=== PATIENT | female | born 1955 | race Caucasian/White ===

== ENCOUNTER 2016-05-31 07:33 | Day surgery (SDC) | payer BC ==
[2016-05-31] VITALS (8 sets, daily range): BP systolic 113–151; BP diastolic 59–80; PULSE 70–89; RESP 16–22; Ht 151.1 cm; Wt 65.6 kg
[~2016-05-31] VITALS: Ht 151.1 cm; Wt 65.6 kg
[~2016-05-31 07:33] MED LIST: GLIP2.5T3 PO; METO50TA16 PO; SIMV10TA6 PO; SITA25TA3 PO
[2016-05-31 09:07] LABS: ADD UMIC YES; URINE BILIRUBIN (Dip) NEGATIVE (NEGATIVE); URINE BLOOD (Dip) 1+ (NEGATIVE); URINE COLOR LT. YELLOW (YELLOW); URINE KETONES (Dip) NEGATIVE (NEGATIVE); URINE LEUKOCYTE ESTERASE (Dip) TRACE (NEGATIVE); URINE NITRITE (Dip) NEGATIVE (NEGATIVE); URINE TOTAL PROTEIN (Dip) 2+ (NEGATIVE); URINE UROBILINOGEN (Dip) 0.2 E.U./dL (0.1-1.0)
[2016-05-31] MEDS ORDERED: [UNRECOGNIZED DRUG - CODE] (09:10)
[2016-05-31] MEDS ORDERED: AMLO-147 PO (09:10)
[2016-05-31] MEDS ORDERED: SEVE800T7 PO (09:10)
[2016-05-31] MEDS ORDERED: TYLENOL (09:13)
[2016-05-31 09:17] LABS: INR 0.93; PARTIAL THROMBOPLASTIN TIME 25.1 Sec (25.0-35.0); PROTIME 12.5 Sec (12.2-14.2)
[2016-05-31 09:18] LABS: BACTERIA,URINE RARE; URINE RBCS 0-2 /HPF (0)
[2016-05-31 09:18] LABS: CALCIUM 9.6 mg/dl (8.4-10.2); CREATININE 5.94 mg/dl (0.44-1.00); POTASSIUM 4.4 mmol/L (3.5-5.1)
[2016-05-31 09:20] LABS: ADD SCAN DIFF NO; BASOPHILS % 0.2 % (0.0-2.0); EOSINOPHILS # 0.1 10^3/ul (0.0-0.5); EOSINOPHILS % 2.4 % (0.0-7.0); HEMATOCRIT 35.2 % (37.0-47.0); HEMOGLOBIN 11.4 g/dl (12.0-16.0); LYMPHOCYTES # 1.3 10^3/ul (0.8-2.9); LYMPHOCYTES % 24.9 % (15.0-51.0); MEAN CORPUSCULAR HEMOGLOBIN 32.6 pg (29.0-33.0); MEAN CORPUSCULAR HGB CONC 32.4 g/dl (32.0-37.0); MEAN CORPUSCULAR VOLUME 100.6 fl (82.0-101.0); MONOCYTE # 0.5 10^3/ul (0.3-0.9); MONOCYTES % 8.9 % (0.0-11.0); NEUTROPHIL # 3.2 10^3/ul (1.6-7.5); NEUTROPHILS % 63.2 % (39.0-77.0); PLATELET COUNT 219 10^3/UL (140-415); RED CELL DISTRIBUTION WIDTH 14.3 % (11.5-14.5); WHITE BLOOD COUNT 5.1 10^3/ul (4.8-10.8)
--- NOTE | 2016-05-31 09:48 | RADRPT ---
PROCEDURE: XR Chest. CLINICAL INDICATION: Shortness of breath. TECHNIQUE: Single frontal chest x-ray. COMPARISON: 06/10/2015 FINDINGS: Interval placement of a right Perma-Cath with the tip in the right atrium. The lungs are clear. No focal opacification is seen. No pneumothorax or pleural effusion is seen. The cardiomediastinal s ilhouette is unremarkable. The osseous structures are grossly unremarkable. IMPRESSION: 1. Interval placement of right Perma-Cath with the tip in the right atrium. 2. No evidence of acute cardiopulmonary disease. RPTAT: JJ .Jose Tsang MD, Date Time Electronically viewed and signed by .Jose Tsang MD, on 05/31/2016 09:48 .A/
[2016-05-31] MEDS ORDERED: IODIXANOL LOCM 100 ML BTL ONE (11:14)
[2016-05-31] MEDS ORDERED: MIDAZOLAM 1 MG/ML 2 ML INJ ONE (11:14)
[2016-05-31] MEDS ORDERED: LIDOCAINE 1% (MDV) 20 ML INJ ONE (11:14)
[2016-05-31] MEDS ORDERED: FENTAnyl 50 MCG/ML VIAL ONE (11:14)
[2016-05-31] MEDS ORDERED: HEPARIN 1000 UNITS/NS (A-LINE) 1,000 ML ONE (11:14)
[2016-05-31] MEDS ORDERED: IODIXANOL LOCM 50 ML BTL ONE (11:45)
--- NOTE | 2016-05-31 12:00 | PDOCDIS ---
Discharge Instructions DIAGNOSIS Discharge Diagnosis: esrd CONDITION Patient Condition: Good HOME CARE INSTRUCTIONS: Special Diet: renal diet ACTIVITY: Activity Restrictions: Slowly Increase Activity Rest between Activity Avoid heavy lifting Do not operate Machinery Do not operate Power Tool Avoid Heavy Housework Bathing Restrictions: Shower FOLLOW UP/APPOINTMENTS Appointments followup with real at [facility] in 2 weeks May use Fistula for HD starting tomorrow and followup for HD perm catheter removal if tolerating dialysis via LUE fistula ROBIN WATKINS MD May 31, 2016 12:00
--- NOTE | 2016-05-31 12:51 | OPR ---
DATE OF OPERATION: 05/31/2016 SURGEON: Chito Juarez MD FLUOROSCOPY HOLM: Abdoul Judge MD PREOPERATIVE DIAGNOSIS: 1. Malfunctioning left upper extremity AV fistula, nonmaturing. 2. End-stage renal disease. POSTOPERATIVE DIAGNOSIS: 1. Malfunctioning left upper extremity AV fistula, nonmaturing. 2. End-stage renal disease. ANESTHESIA: Local with sedation. ESTIMATED BLOOD LOSS: Minimal. COMPLICATIONS: None HEPARIN: 5000 units of heparin intravenously. CONTRAST: As recorded. ACCESS: Left upper extremity 6-Romanian sheath. CLOSURE: Manual compression, 3-0 nylon suture. INDICATIONS: This is a 61-year-old female who presented with a history of end-stage renal disease, currently with a right chest wall catheter. The fistula has not matured during her fistula surveill ance ultrasound and it was identified that she has areas of significant stenosis. Subsequently, pat ient was informed of risks and benefits of a venogram balloon angioplasty and stenting. Risks inclu ding but not limited to bleeding, thrombosis, embolization, myocardial infarction, , device mal function, infection, nephrotoxicity stroke. The patient has agreed to proceed. PROCEDURE: 1. Ultrasound-guided access of the left upper extremity fistula. 2. Left upper extremity fistulogram. 3. Central venogram (subclavian vein and superior vena cava, internal jugular vein and brachiocepha lic vein). 4. Left cephalic vein venoplasty using a 7 mm x 60 mm balloon. 5. Central venoplasty using a 7 mm x 60 mm balloon. 6. Cephalic arch and axillary vein venoplasty using a 7 mm x 60 mm balloon. FINDINGS: 1. Patent fistula. 2. Significant stenosis in the proximal aspect of the cephalic vein and the fistula. 3. Patent axillary vein with stenosis in the cephalic arch at the junction. 4. Patent left subclavian vein. 5. Patent brachiocephalic vein. 6. Patent superior vena cava. 7. Patent brachial artery. 8. Patent bifurcation of the brachial artery. POST-INTERVENTION FINDINGS: Patent fistula and improved flow through the proximal aspect of the cep halic vein where the patient had stenosis and through the cephalic arch. DESCRIPTION OF PROCEDURE: The patient was brought into the angio suite and positioned in supine pos ition on the fluoroscopic table. Sedation was administered without complications. Right upper extr emity was shaved, prepped and draped in the usual standard sterile fashion. Timeout and appropriate site was marked and confirmed. Local anesthesia was infiltrated in the region of the left upper ex tremity fistula. The fistula was then cannulated micro access needle under ultrasound guidance and the guidewire was advanced into the axillary vein under fluoroscopic guidance. The needle was then removed, and the c lot and a glide catheter was placed. Multicystic fistulogram was conducted of the upper extremity a nd central veins. Findings are noted above. At this point, it was identified the patient has a sig nificant stenosis in the proximal aspect of the fistula and in the central vein with the cephalic ar ch and axillary vein junction. At this point, it was decided to go ahead and perform balloon venopl asty of this segment using a 7 mm x 60 mm balloon. Venoplasty of the cephalic vein was performed in the fistula with good flow limiting venogram. Once that was conducted, we went ahead and performed a venoplasty of the cephalic arch and axillary vein junction with good findings. Completion venogr am identified good flow and good bruit and thrill identified in the fistula. The patient tolerated the procedure well and was sent to the postanesthesia care unit in stable condition. We went ahead and removed all catheters, wires and using a 3-0 nylon suture, the puncture site was closed. PLAN: We will schedule the patient to have her fistula used starting tomorrow and hope that she can have 3 successful sessions prior to removing the right chest wall catheter. Dictated By: CHITO HUTSON/STEPHEN Conf#: [id number] DID#: [id number]
--- NOTE | 2016-06-01 19:16 | RADRPT ---
Vent Rate: 69 bpm RR Interval: 0 msec SC Interval: 140 msec QRS Duration: 96 msec QT Interval: 402 msec QTC Interval: 430 msec P-R-T [place]: 28 - 24 - 72 degrees Normal sinus rhythm Normal ECG Electronically Signed By: Gary Urrutia [id number]
== END 2016-05-31 13:50 | disposition home or self-care (01) ==
LOC: SDS 07:33
PROVIDERS: ATTEND Thoracic Surgery (Cardiothoracic Vascular Surgery)
DX: T82.898A Other specified complication of vascular prosthetic devices, implants and grafts, initial encounter (principal); Y84.1 Kidney dialysis as the cause of abnormal reaction of the patient, or of later complication, without mention of misadventure at the time of the procedure; Y92.89 Other specified places as the place of occurrence of the external cause; I12.0 Hypertensive chronic kidney disease with stage 5 chronic kidney disease or end stage renal disease; N18.6 End stage renal disease
CPT/HCPCS: 36902; 36907; 71010; 80048; 81001; 82962; 85025; 85610; 85730; 93005; C1725; C1769; J1644; J2250; J3010; Q9967; 81003

== ENCOUNTER 2016-07-04 23:38 | Emergency (ER) | payer BC ==
[~2016-07-04] VITALS: Ht 149.9 cm; Wt 66.5 kg
[~2016-07-04 23:38] MED LIST changes: +AMLO-147 PO; -METO50TA16 PO; +SEVE800T7 PO; +TYLENOL
[2016-07-05 00:05] VITALS: Ht 149.9 cm; Wt 66.5 kg
[2016-07-05] MEDS ORDERED: SOD CHLORIDE 0.9% 500 ML IV STA (02:27)
[2016-07-05 02:44] LABS: ADD SCAN DIFF NO
[2016-07-05 02:55] LABS: INR 0.97; PROTIME 12.9 Sec (12.2-14.2)
[2016-07-05 02:56] LABS: PARTIAL THROMBOPLASTIN TIME 29.2 Sec (25.0-35.0)
[2016-07-05 03:03] LABS: BASOPHILS % 0.3 % (0.0-2.0); EOSINOPHILS % 0.3 % (0.0-7.0); HEMATOCRIT 31.9 % (37.0-47.0); HEMOGLOBIN 10.3 g/dl (12.0-16.0); LYMPHOCYTES # 1.2 10^3/ul (0.8-2.9); LYMPHOCYTES % 13.1 % (15.0-51.0); MEAN CORPUSCULAR HEMOGLOBIN 32.7 pg (29.0-33.0); MEAN CORPUSCULAR HGB CONC 32.3 g/dl (32.0-37.0); MEAN CORPUSCULAR VOLUME 101.3 fl (82.0-101.0); MEAN PLATELET VOLUME 11.2 fl (7.4-10.4); MONOCYTE # 0.4 10^3/ul (0.3-0.9); MONOCYTES % 4.7 % (0.0-11.0); NEUTROPHIL # 7.1 10^3/ul (1.6-7.5); NEUTROPHILS % 80.8 % (39.0-77.0); PLATELET COUNT 270 10^3/UL (140-415); RED BLOOD COUNT 3.15 10^6/ul (4.20-5.40); RED CELL DISTRIBUTION WIDTH 13.6 % (11.5-14.5); WHITE BLOOD COUNT 8.9 10^3/ul (4.8-10.8)
[2016-07-05 03:04] LABS: ALBUMIN/GLOBULIN RATIO 1.1
[2016-07-05 03:07] LABS: ALBUMIN 4.1 g/dl (3.3-4.9); BILIRUBIN,INDIRECT 0.2 mg/dl (0-1.1); BILIRUBIN,TOTAL 0.2 mg/dl (0.2-1.3); CREATININE 4.9 mg/dl (0.44-1.00); POTASSIUM 3.8 mmol/L (3.5-5.1); TOTAL PROTEIN 7.8 g/dl (6.1-8.1)
[2016-07-05 03:17] LABS: TROPONIN-I 0.087 ng/ml (0.00-0.12)
--- NOTE | 2016-07-05 03:38 | RADRPT ---
PROCEDURE: Chest. CLINICAL INDICATION: Chest pain. TECHNIQUE: Single frontal view of the chest was obtained. COMPARISON: 05/31/2016. FINDINGS: The cardiac silhouette is within normal limits. The aortic arch is unremarkable. There is no focal consolidation, vascular congestion or pleural effusion. There is no pneumothorax. IMPRESSION: No evidence for active cardiopulmonary disease. .Bridger Garcia MD, Date Time Electronically viewed and signed by .Bridger Garcia MD, on 07/05/2016 03:37 .T/
--- NOTE | 2016-07-05 04:19 | ERD ---
ER Documentation Chief Complaint Date/Time DATE: 07/05/16 TIME: 04:18 Chief Complaint palpitations/rapid heart rate x 2 hours HPI This is a very pleasant 61-year-old, palpitations and rapid heart rate for 2 hours. She said the palpitations started and she felt very lightheaded. Since then she says she is resolved. She denies any fevers or chills. She denies any nausea vomiting. She denies any dinorah chest pain. She denies any current issues. ROS All systems reviewed and are negative except as per history of present illness. Medications Home Meds Reported Medications [Tylenol ] No Conflict Check 05/31/16 Amlodipine Besylate* (Amlodipine Besylate*) 10 Mg Tablet, 5 MG PO DAILY, #30 TAB 05/31/16 Sevelamer Carbonate* (Renvela*) 800 Mg Tablet, 0.8 GM PO WITH MEALS, TAB 05/31/16 Sitagliptin* (Januvia*) 25 Mg Tablet, 25 MG PO DAILY, TAB 06/09/15 Glipizide* (Glipizide ER*) 2.5 Mg Tab.er.24, 2.5 MG PO BID 06/09/15 Simvastatin (Simvastatin) 10 Mg Tablet, 10 MG PO DAILY 06/09/15 Allergies Allergies: Coded Allergies: No Known Allergy (Unverified , 05/31/16) PMhx/Soc History of Surgery: Yes (fistula insertion L upper arm, ) Anesthesia Reaction: No Hx Neurological Disorder: No Hx Respiratory Disorders: No Hx Cardiac Disorders: Yes (HTN, HIGH CHOL) Hx Psychiatric Problems: No Hx Miscellaneous Medical Probl: Yes (DM 2ESRD--HD THREE TIMES A WEEK) Hx Alcohol Use: No (OCC SOC) Hx Substance Use: Yes (past history- college) Hx Tobacco Use: Yes (SOCiAL IN COLLEGE) Smoking Status: Former smoker Physical Exam Vitals Vital Signs Date Time Temp Pulse Resp B/P Pulse Ox O2 Delivery O2 Flow Rate FiO2 07/05/16 00:05 97.1 89 20 123/63 98 Physical Exam Const: [] Head: Atraumatic Eyes: Normal Conjunctiva ENT: Normal External Ears, Nose and Mouth. Neck: Full range of motion..~ No meningismus. Resp: Clear to auscultation bilaterally Cardio: Regular rate and rhythm, no murmurs Abd: Soft, non tender, non distended. Normal bowel sounds Skin: No petechiae or rashes Back: No midline or flank tenderness Ext: No cyanosis, or edema Neur: Awake and alert Psych: Normal Mood and Affect Result Diagram: 07/05/16 0240 07/05/16 0240 Results 24 hrs Laboratory Tests Test 07/05/16 02:40 White Blood Count 8.910^3/ul Red Blood Count 3.1510^6/ul Hemoglobin 10.3g/dl Hematocrit 31.9% Mean Corpuscular Volume 101.3fl Mean Corpuscular Hemoglobin 32.7pg Mean Corpuscular Hemoglobin Concent 32.3g/dl Red Cell Distribution Width 13.6% Platelet Count 91621^3/UL Mean Platelet Volume 11.2fl Neutrophils % 80.8% Lymphocytes % 13.1% Monocytes % 4.7% Eosinophils % 0.3% Basophils % 0.3% Nucleated Red Blood Cells % 0.0/100WBC Neutrophils # 7.110^3/ul Lymphocytes # 1.210^3/ul Monocytes # 0.410^3/ul Eosinophils # 0.010^3/ul Basophils # 0.010^3/ul Nucleated Red Blood Cells # 0.010^3/ul Prothrombin Time 12.9Sec Prothrombin Time Ratio 1.0 INR International Normalized Ratio 0.97 Activated Partial Thromboplast Time 29.2Sec Sodium Level 142mmol/L Potassium Level 3.8mmol/L Chloride Level 101mmol/L Carbon Dioxide Level 27mmol/L Anion Gap 18 Blood Urea Nitrogen 25mg/dl Creatinine 4.90mg/dl Glucose Level 208mg/dl Calcium Level 9.0mg/dl Total Bilirubin 0.2mg/dl Direct Bilirubin 0.00mg/dl Indirect Bilirubin 0.2mg/dl Aspartate Amino Transf (AST/SGOT) 16IU/L Alanine Aminotransferase (ALT/SGPT) 15IU/L Alkaline Phosphatase 110IU/L Troponin I 0.087ng/ml B-Type Natriuretic Peptide 4590PG/ML Total Protein 7.8g/dl Albumin 4.1g/dl Globulin 3.70g/dl Albumin/Globulin Ratio 1.10 Current Medications Medications (Trade) Dose Ordered Sig/Sharon Route PRN Reason Start Time Stop Time Status Last Admin Dose Admin Sodium Chloride (NS) 500 ml @ 500 mls/hr Q1H STAT IV 07/05/16 02:27 07/05/16 03:26 DC Procedures/MDM EKG: Rate/Rhythm: Variable AK and QT intervals. Irregular rhythm QRS, ST, T-waves: [No changes consistent w/ acute ischemia] Impression: Atrial fibrillation at 133 bpm Rhythm strip: Rate/Rhythm: Normal Sinus Rhythm Impression: No evidence of ischemia or arrhythmia Chest X-ray 1V Interpreted by me: Soft Tissue: No acute abnormalities Bones: No acute abnormalities Mediastinum/Cardiac Silhouette/Lungs: [No acute abnormalities] Medical decision makin-year-old female as well as new onset A. fib. I spoke to Dr. Junior who is on-call for the group and he states that the patient can be seen in the office which I agree with. Patient be discharged home. Told to return immediately for any return of symptoms in the interim until she follows up with Dr. junior's office in the morning Departure Diagnosis: Primary Impression: Palpitations Additional Impression: Atrial fibrillation Atrial fibrillation type: paroxysmal Qualified Code: I48.0 - Paroxysmal atrial fibrillation Condition: Stable JESSE PIÑA Jul 05, 2016 04:19
[2016-07-05 04:36] VITALS: BP 129/63; PULSE 77; RESP 16; TEMP 98.7
== END 2016-07-05 04:39 | disposition home or self-care (01) ==
LOC: E/R 23:38
DX: I48.0 Paroxysmal atrial fibrillation (principal); I12.0 Hypertensive chronic kidney disease with stage 5 chronic kidney disease or end stage renal disease; N18.6 End stage renal disease; E11.9 Type 2 diabetes mellitus without complications; Z79.84 Long term (current) use of oral hypoglycemic drugs; Z87.891 Personal history of nicotine dependence; Z99.2 Dependence on renal dialysis
CPT/HCPCS: 71010; 80053; 83880; 84484; 85025; 85610; 85730; 93005; J7040; 36415

== ENCOUNTER → 2016-12-23 | Outpatient (CLI) | payer BC ==
--- NOTE | 2016-12-23 12:53 | RADRPT ---
PROCEDURE: US left upper extremity arterial system. CLINICAL INDICATION: Left upper extremity pain and swelling. Left arm dialysis fistula. History of swelling following dialysis. TECHNIQUE: Multiple longitudinal and transverse images of the left upper extremity arterial tree d ialysis fistula was obtained with giron scale pulsed Doppler, and color Doppler imaging. COMPARISON: None available FINDINGS: The left brachial artery, radial artery, and ulnar artery are all normal. There is no thrombus or o cclusion. There is no significant stenosis. There is normal triphasic flow throughout. Peak systolic velocities are as follows: Brachial: 245 cm/sec Radial: 28 cm/sec Ulnar: 19 cm/sec Outflow vein: 25 cm/sec There is a pseudoaneurysm of the outflow vein with a neck measuring 0.5 cm and flow in the pseudoane urysm in a region measuring 4.3 x 3.0 cm. The pseudoaneurysm demonstrates typical to and fro flow in the neck. IMPRESSION: 1. Pseudoaneurysm measuring 4.3 x 3.0 cm of the outflow vein of the left upper extremity dialysis f istula. 2. The left upper extremity dialysis fistula is otherwise patent. Call report: A call report of the findings was attempted to be made to Dr. Mcdermott on 12/23/2016 at 1245 hours. There was no answer. RPTAT: QQ .Nikolas Youngblood MD, MD Date Time Electronically viewed and signed by .Nikolas Youngblood MD, on 12/23/2016 12:52 .R/
== END | disposition home or self-care (01) ==
LOC: VAS 08:40
PROVIDERS: ATTEND Internal Medicine
DX: R22.32 Localized swelling, mass and lump, left upper limb (principal)
CPT/HCPCS: 93931

== ENCOUNTER 2017-01-16 15:36 | Observation (INO) | payer BC ==
[2017-01-16] VITALS (8 sets, daily range): BP systolic 95–154; BP diastolic 42–67; PULSE 76–101; RESP 16–19; Ht 149.9 cm; Wt 61.4 kg
[~2017-01-16] VITALS: Ht 149.9 cm; Wt 61.4 kg
--- NOTE | 2017-01-16 07:11 | HP ---
DATE OF ADMISSION: 01/16/2017 TYPE OF CONSULTATION: Nephrology. She is going to be admitted by Dr. Juarez on Monday01/16/2017 for AV fistula revision of her lef t arm and preoperative consultation is requested. SUBJECTIVE: This patient has known end-stage renal disease due to diabetes and hypertension and is currently maintained on outpatient hemodialysis every Monday, Monday and Monday at the [facility] unit. Approximately 2 months ago she developed an infiltration at her access site and developed a large he matoma. Fortunately, she was able to continue using the access for dialysis and with conservative t reatment the hematoma gradually diminished, but a large mass in the area of the access remained. It was nontender and nonpulsatile. This was subsequently evaluated on 12/23/2016 with an ultrasound of the left upper extremity and the findings at that time showed a pseudoaneurysm measuring approximately 4.3 x 3 cm of the outflow vei n of the left upper extremity dialysis fistula. Again, she has remained asymptomatic. She was referred back to Dr. Juarez who agreed that the patient will need a surgical revision tog ether with placement of a Perm-A-Cath. These procedures are to undergo on 01/16/2017. Otherwise, the patient feels well. She denies any fevers, chills, sweats, nausea or vomiting. There has been no chest pain, shortness of breath, syncope, presyncope, or any palpitations. Her lab work has been excellent. PAST MEDICAL HISTORY: Please see full dictated problem list. ALLERGIES: NONE. HABITS: Tobacco: None. Alcohol: None. MEDICATIONS: 1. Glipizide 2.5 mg b.i.d. 2. Januvia 25 mg a day. 3. Amlodipine 10 mg a day. 4. Metoprolol ER 50 mg a day. 5. Renvela 2-3 tablets t.i.d. with meals. 6. Eliquis 2.5 mg b.i.d., subsequently discontinued. 7. Nephro-Ghazala 1 daily. REVIEW OF SYSTEMS: As per HPI. PHYSICAL EXAMINATION: GENERAL: Fit-appearing woman in no acute distress. VITAL SIGNS: She is afebrile, blood pressure 132/76, heart rate 70 and regular, respirations are 12 and unlabored. SKIN: Warm, well perfused. HEAD: Normocephalic, atraumatic. EYES: Pupils are equal, round, reactive. Extraocular movements are full. Sclerae are anicteric. PHARYNX: No lesions. NECK: JVP is flat. There is no adenopathy or thyromegaly. Carotids are 2+ and no bruits. BACK: No CVAT. LUNGS: Clear. HEART: S1, S2, regular rate and rhythm, no murmurs. ABDOMEN: Soft and nontender. Normoactive bowel sounds. No organomegaly. EXTREMITIES: No cyanosis, clubbing or edema. Distal pulses are intact. She has a functioning left upper extremity AV fistula with a large nontender mass adjacent to the fistula. Her neurovascular exam of the left hand is intact. LABORATORY DATA: To be done at the hospital preop. Chest x-ray, EKG to be done at the hospital pre op. PROBLEM LIST: 1. Pseudoaneurysm, left upper extremity AV fistula, for planned revision and placement of Perm-A-Ca th by Dr. Juarez. 2. Hematoma, left upper extremity since resolved. 3. End-stage renal disease due to diabetes and hypertension, maintained on outpatient hemodialysis every Monday, Monday, and Monday since 2016. 4. Remote history of paroxysmal atrial fibrillation, has been in normal sinus rhythm for greater th an 6 months, followed by Dr. Peters. 5. Eliquis, currently on hold. 6. Hypertension, well controlled. 7. Noninsulin dependent diabetes mellitus, well controlled. 8. Anemia of end-stage renal disease, maintained on outpatient EPO. 9. Secondary hyperparathyroidism managed in the outpatient setting. RECOMMENDATIONS: The patient is medically cleared for planned surgical revision. Dictated By: STANISLAV CUNNINGHAM MD, MM/STEPHEN Conf#: [id number] DID#: [id number]
--- NOTE | 2017-01-16 14:33 | HPN ---
Date/Time of Note Date/Time of Note DATE: 01/16/17 TIME: 14:33 Interval H&P Admission Note Pt. seen H&P reviewed: No system changes ROBIN WATKINS MD Jan 16, 2017 14:33
--- NOTE | 2017-01-16 14:34 | SIPON ---
Date/Time of Note Date/Time of Note DATE: 01/16/17 TIME: 14:33 Operative Report Preoperative Diagnosis ESRD & LUE PSEUDOANEURYSM Postoperative Diagnosis SAME Operation/Procedure Performed REVISION OF LUE FISTULA WITH BOVINE ARTEGRAFT RIGHT IJ PERM CATHETER PLACEMENT Surgeon see signature line [facility] assisted living NONE Anesthesia: moderate sedation Estimated blood loss: minimal Transfusion Required none Specimen NONE Grafts/Implants none Complications none ROBIN WATKINS MD Jan 16, 2017 14:34
--- NOTE | 2017-01-16 14:34 | SIPON ---
Date/Time of Note Date/Time of Note DATE: 01/16/17 TIME: 14:33 Operative Report Preoperative Diagnosis ESRD & LUE PSEUDOANEURYSM Postoperative Diagnosis SAME Operation/Procedure Performed REVISION OF LUE FISTULA WITH BOVINE ARTEGRAFT RIGHT IJ PERM CATHETER PLACEMENT Surgeon see signature line assistant manager retail NONE Anesthesia: moderate sedation Estimated blood loss: minimal Transfusion Required none Specimen NONE Grafts/Implants none Complications none ROBIN WATKINS MD Jan 16, 2017 14:34
--- NOTE | 2017-01-16 14:34 | SIPON ---
Date/Time of Note Date/Time of Note DATE: 01/16/17 TIME: 14:33 Operative Report Preoperative Diagnosis ESRD & LUE PSEUDOANEURYSM Postoperative Diagnosis SAME Operation/Procedure Performed REVISION OF LUE FISTULA WITH BOVINE ARTEGRAFT RIGHT IJ PERM CATHETER PLACEMENT Surgeon see signature line educational program assistant NONE Anesthesia: moderate sedation Estimated blood loss: minimal Transfusion Required none Specimen NONE Grafts/Implants none Complications none ROBIN WATKINS MD Jan 16, 2017 14:34
--- NOTE | 2017-01-16 14:35 | PDOCDIS ---
Discharge Instructions DIAGNOSIS Discharge Diagnosis ESRD CONDITION Patient Condition: Good HOME CARE INSTRUCTIONS: Special Diet: RESUME RENAL DIET ACTIVITY: Activity Restrictions: Slowly Increase Activity Avoid heavy lifting Do not Drive Do not operate Machinery Do not operate Power Tool Avoid Heavy Housework Keep Limb Elevated Bathing Restrictions: Sponge Bath FOLLOW UP/APPOINTMENTS Follow-up Plan FOLLOWUP FOR WOUND CHECK [place] WEEK OR TWO DO NOT REMOVE DRESSING FOR 2 DAYS KEEP ARM SLING ON UNTIL MOTOR/SENSORY RETURNS (8-10HRS) AVOID BATHING OR SWIMMING, MAY SHOWER IN 2 DAYS ROBIN WATKINS MD Jan 16, 2017 14:35
[~2017-01-16 15:36] MED LIST changes: +CEFAZOLIN 2 GM/50 ML (PMX) 50 ML IVPB ONE
--- NOTE | 2017-01-16 16:13 | RADRPT ---
PROCEDURE: XR Chest. CLINICAL INDICATION: Preoperative. TECHNIQUE: Single frontal view. COMPARISON: 07/05/2016. FINDINGS: The lungs are clear. The heart size is normal. There is calcification in the aorta consistent with atherosclerosis. There is no pleural effusion. There is no pneumothorax. IMPRESSION: 1. Atherosclerosis. 2. Otherwise normal chest radiograph. 3. No change from 07/05/2016. RPTAT: QQ .Nikolas Youngblood MD, MD Date Time Electronically viewed and signed by .Nikolas Youngblood MD, MD on 01/16/2017 16:12 .R/
[2017-01-16] MEDS ORDERED: THROMBIN 5000 UNIT VIAL ONE ×3 (17:43→21:31)
[2017-01-16] MEDS ORDERED: LIDOCAINE 1% (MPF) 30 ML INJ ONE (17:43)
[2017-01-16] MEDS ORDERED: HEPARIN 1000 UNITS/ML 10 ML INJ ONE ×3 (17:43→19:22)
[2017-01-16] MEDS ORDERED: GELATIN SIZE 100 SPONGE ONE ×2 (17:43→21:15)
[2017-01-16] MEDS ORDERED: MIDAZOLAM 1 MG/ML 2 ML INJ ONE ×2 (17:44→20:43)
[2017-01-16] MEDS ORDERED: ROPIVACAINE 0.5 % 30 ML VIAL ONE (17:44)
[2017-01-16] MEDS ORDERED: FENTAnyl 50 MCG/ML VIAL ONE ×3 (17:44→21:25)
[2017-01-16] MEDS ORDERED: CEFAZOLIN 1 GM INJ ONE ×2 (17:48→22:00)
[2017-01-16] MEDS ORDERED: PROPOFOL 20 ML ONE ×3 (19:09→22:39)
[2017-01-16] MEDS ORDERED: MEPERIDINE 25 MG INJ IV PRN (19:30)
[2017-01-16] MEDS ORDERED: OXYCODONE/ACETAMINOPHEN (5/325) TAB PO PRN ×2 (19:30)
[2017-01-16] MEDS ORDERED: DIPHENHYDRAMINE 50 MG INJ IV PRN (19:30)
[2017-01-16] MEDS ORDERED: ONDANSETRON 4 MG INJ IV PRN (19:30)
[2017-01-16] MEDS ORDERED: HYDROmorphONE (0.2 MG/ML) 10ML SYG IV PRN ×3 (19:30)
[2017-01-16] MEDS ORDERED: DESMOPRESSIN 12 MCG in SOD CHLORIDE 0.9% 50 ML IV ONE (20:00)
[2017-01-16] MEDS ORDERED: EPHEDrine SULFATE 50 MG/5 ML SYG ONE (20:41)
[2017-01-16] MEDS ORDERED: ONDANSETRON 4 MG INJ ONE (20:44)
--- NOTE | 2017-01-16 20:54 | RADRPT ---
PROCEDURE: Intraoperative imaging of the chest. CLINICAL INDICATION: Check line placement. TECHNIQUE: Images of the chest were obtained in the operating room with an image intensifier. No radiologist was in attendance. 1 image of the chest was obtained with the image intensifier. Fluo roscopy time is 45 seconds. COMPARISON: Chest x-ray done earlier the same day. FINDINGS: Final images demonstrate a right internal jugular vein tunneled dialysis catheter with the tip in th e superior vena cava. IMPRESSION: 1. Satisfactory intraoperative imaging of the chest. RPTAT: QQ .Nikolas Youngblood MD, MD Date Time Electronically viewed and signed by .Nikolas Youngblood MD, MD on 01/16/2017 20:54 .R/
[2017-01-16] MEDS ORDERED: THROMBIN(HUM PLAS)/FIBRINOG/CA 5 ML VIAL TOP ONE (22:02)
[2017-01-16] MEDS ORDERED: PHENYLephrine (100 MCG/ML) 5ML SYG ONE (22:20)
[2017-01-16] MEDS ORDERED: SOD CHLORIDE 0.9% 250 ML IV* ONE (22:30)
[2017-01-17] VITALS (8 sets, daily range): BP systolic 104–146; BP diastolic 47–70; PULSE 80–88; RESP 17–22
[2017-01-17] MEDS ORDERED: NACL 0.9% 3 ML SYG IV SCH
[2017-01-17] MEDS ORDERED: ACETAMINOPHEN 325 MG TAB PO PRN
[2017-01-17] MEDS ORDERED: PANTOPRAZOLE 40 MG INJ IV SCH (06:00)
[2017-01-17] MEDS ORDERED: ONDANSETRON 4 MG INJ IV PRN (06:30)
--- NOTE | 2017-01-17 07:00 | HP ---
Date/Time of Note Date/Time of Note DATE: 01/17/17 TIME: 06:48 Assessment/Plan VTE Prophylaxis VTE Prophylaxis Intervention: SCD's Lines/Catheters IV Catheter Type (from [facility] Peripheral IV Assessment/Plan Chief Complaint/Hosp Course This is a 61-year-old female being admitted to the [facility] for: #1 Intraoperative blood loss: Patient had approximately 700 cc of blood loss intraoperatively. Patient currently right now is stable at the bedside. She does appear slightly somnolent however this likely could be secondary to patient 's anesthesia from the surgery. She is answering questions appropriately and is alert and oriented 3. There is no bleeding noted in any of the surgical sites or from the right IJ permacatheter placement. At the current time she is also receiving 2 units of packed red blood cells. Will continue the blood transfusion and monitor the patient. Repeat H&H after the transfusion and then 6 hours after that. Vascular surgery and nephrology are also on the case. #2 end-stage renal disease: Patient is status post left AV fistula revision secondary to pseudoaneurysm formation. She also had a right IJ permacath placement. Will defer further management to nephrology. #3 Hypertension: We will continue patient's home medications #4 diabetes mellitus: We will check hemoglobin A1c, insulin sliding scale hold home medications #5 DVT GI prophylaxis: SCDs, acid uche Further treatment strategy will be implemented as per the clinical course Problems: HPI/ROS Admit Date/Time Admit Date/Time Jan 17, 2017 at 00:51 Hx of Present Illness Chief complaint: Intraoperative blood loss This is a 61-year-old female who is being admitted for intraoperative blood blood loss during her left AV fistula revision procedure. Patient was undergoing an outpatient surgery for left AV fistula revision. During the procedure she lost approximately 700 cc of blood. Patient was given packed red blood cells. Secondary to her blood loss requiring transfusion it was determined by the surgeon Dr. North and the hand chain maker Dr. Mcdermott to have the patient admitted for observation overnight. Patient has a known history of end-stage renal disease and diabetes and hypertension and is currently receiving dialysis on a Monday schedule. Patient's exercise for dialysis developed hematoma approximately 2 months ago however she was able to undergo dialysis during this time. Upon further evaluation it was noted that the patient had developed a pseudoaneurysm. It was for this that the patient had a surgical revision of the left AV fistula today. Patient also had a right IJ permacath placement. Allergies: latex Medications: See MAR ROS Const: Negative for fever, chills, weight gain or weight loss, fatigue, or diaphoresis Eyes : No pain discharge or redness or change in visual acuity ENT: No pain, sore throat, congestion, congestion, dysphagia or discharge Respiratory: No shortness of breath, cough, sputum, wheezing, or pleuritic pain Cardiovascular: No chest pain, palpitation, PND, or edema GI : no change in appetite, abdominal pain, nausea, vomiting, diarrhea, constipation, or change in the color his stool Genitourinary: No dysuria, hematuria, flank pain , discharge or CVA tenderness Musculoskeletal: No joint pain, back pain, neck pain, restricted range of motion in neck or joints Skin: No rash, bruising or hives Neuro: No headache, dizziness, syncope, seizure, focal weakness Endocrine: No polyuria, polydipsia, temperature intolerance Psych: No hallucination, depression, anxiety or suicidal ideation PMH/Family/Social Past Medical History End-stage renal disease with dialysis on Monday, hypertension, diabetes mellitus Past Surgical History 1, left AV fistula surgery, left AV fistula revision secondary to pseudoaneurysm development Family History Significant Family History: no pertinent family hx Social History Alcohol Use: none Smoking Status: Never smoker Drug Use: none Exam/Review of Systems Vital Signs Vitals Vital Signs Date Time Temp Pulse Resp B/P Pulse Ox O2 Delivery O2 Flow Rate FiO2 01/17/17 02:00 98.6 79 18 132/63 95 01/17/17 01:30 Room Air Intake and Output 01/16/17 01/16/17 01/17/17 15:00 23:00 07:00 Intake Total 350 ml 1175 ml Output Total 700 ml Balance 350 ml 475 ml Exam Exam General: Patient is well-developed well-nourished The patient is alert oriented -3 lying comfortably in bed. HEENT: Atraumatic, normocephalic. The pupils are equal, round and reactive. Extraocular motor are intact Neck: Supple with full range of motion. No rigidity or meningismus Chest: Right IJ permacath in place Lungs: Clear to auscultation bilaterally no crackles rales or wheezing Heart: Normal S1-S2, Regular rhythm and rate. Abdomen: Soft , nontender, nondistended , bowel sounds are present. No guarding no rebound tenderness , No masses or organomegaly. No costovertebral temporal angle mass Extremities: Normal to inspection, no edema no cyanosis Neurologic: Normal mental status, speech normal, cranial nerves II through XII are intact, motor and sensory are intact, no focal weakness Skin: Left upper extremity dressing clean dry and intact status post left AV fistula revision Additional Comments PROCEDURE: Intraoperative imaging of the chest. CLINICAL INDICATION: Check line placement. TECHNIQUE: Images of the chest were obtained in the operating room with an image intensifier. No radiologist was in attendance. 1 image of the chest was obtained with the image intensifier. Fluoroscopy time is 45 seconds. COMPARISON: Chest x-ray done earlier the same day. FINDINGS: Final images demonstrate a right internal jugular vein tunneled dialysis catheter with the tip in the superior vena cava. IMPRESSION: 1. Satisfactory intraoperative imaging of the chest. RPTAT: QQ .Nikolas Youngblood MD, MD Date Time Electronically viewed and signed by .Nikolas Youngblood MD, on 01/16/2017 20:54 .R/ CC: ROBIN WATKINS MPROCEDURE: XR Chest. CLINICAL INDICATION: Preoperative. TECHNIQUE: Single frontal view. COMPARISON: 07/05/2016. FINDINGS: The lungs are clear. The heart size is normal. There is calcification in the aorta consistent with atherosclerosis. There is no pleural effusion. There is no pneumothorax. IMPRESSION: 1. Atherosclerosis. 2. Otherwise normal chest radiograph. 3. No change from 07/05/2016. RPTAT: QQ .Nikolas Youngblood MD, MD Date Time Electronically viewed and signed by .Nikolas Youngblood MD, on 01/16/2017 16:12 .R/ CC: ROBIN WATKINS MD Labs Result Diagram: 01/16/17 1600 01/16/17 1600 Medications Medications Current Medications Acetaminophen (Tylenol Tab) 650 mg Q6H PRN PO PAIN LEVEL 1-3 OR FEVER Last administered on 01/17/17 06:07; Admin Dose 650 MG; Start 01/17/17 at 00:00 Pantoprazole (Protonix Iv) 40 mg DAILY@06 IV Last administered on 01/17/17 06 :00; Admin Dose 40 MG; Start 01/17/17 at 06:00 Diagnostic Test (Pha) (Accu-Chek) 1 ea 02 XX ; Start 01/18/17 at 02:00 Diagnostic Test (Pha) (Accu-Chek) 1 ea 02 XX ; Start 01/18/17 at 02:00 Ondansetron HCl (Zofran Inj) 4 mg Q4H PRN IV NAUSEA AND/OR VOMITING Last administered on 01/17/17 06:42; Admin Dose 4 MG; Start 01/17/17 at 06:30 NITA EDGAR Jan 17, 2017 07:00
--- NOTE | 2017-01-17 07:47 | CONS ---
Date/Time of Note Date/Time of Note DATE: 01/17/17 TIME: 07:42 Assessment/Plan Assessment/Plan Problems: (1) ESRD (end stage renal disease) on dialysis Comment: s/p HD Mon, yest... no chems this am, so will order a STAT BMP to assure no need for HD post the blood loss/absorption post op (2) HTN (hypertension) Comment: controlled... need to order home meds (3) Diabetes mellitus Comment: on ss now (4) Pseudoaneurysm of AV hemodialysis fistula Comment: unclear about surgery yesterday... does have Rt chest permacath, but LUE bandaged with no bruit about prior AVF... will discuss w dr Contreras (5) Blood loss, postoperative Comment: did require Tx of PRBC... Hct fine this am, as are her VS Consultation Date/Type/Reason Admit Date/Time Jan 17, 2017 at 00:51 Initial Consult Date Type of Consultation: neph 24 HR Interval Summary Free Text/Dictation pt A&C, albeit fatigued. LUE bandaged... no bruit felt or heard. Rt Permacath in plave Exam/Review of Systems Vital Signs Vitals Vital Signs Date Time Temp Pulse Resp B/P Pulse Ox O2 Delivery O2 Flow Rate FiO2 01/17/17 02:00 98.6 79 18 132/63 95 01/17/17 01:30 Room Air Intake and Output 01/16/17 01/16/17 01/17/17 15:00 23:00 07:00 Intake Total 350 ml 1175 ml Output Total 700 ml Balance 350 ml 475 ml Exam Constitutional: alert Head: normocephalic Neck: supple Respiratory: clear to auscultation Cardiovascular: regular rate and rhythm Gastrointestinal: nl liver, spleen, soft Extremities: normal pulses (bandage about LUE... no bvruit heard/felt) Results Result Diagram: 01/17/17 0537 01/16/17 1600 Results 24 hrs Laboratory Tests Test 01/16/17 15:57 01/16/17 16:00 01/16/17 23:19 01/17/17 05:37 Bedside Glucose 79 252 H White Blood Count 5.8 # 12.4 #H Red Blood Count 3.84 #L 3.96 L Hemoglobin 11.6 L 11.9 L Hematocrit 36.0 L 36.4 L Mean Corpuscular Volume 93.8 91.9 Mean Corpuscular Hemoglobin 30.2 30.1 Mean Corpuscular Hemoglobin Concent 32.2 32.7 Red Cell Distribution Width 14.5 16.1 H Platelet Count 204 # 175 Mean Platelet Volume 11.7 H 11.7 H Neutrophils % 63.2 91.6 H Lymphocytes % 27.5 4.6 L Monocytes % 7.3 3.1 Eosinophils % 1.2 0.0 Basophils % 0.5 0.1 Nucleated Red Blood Cells % 0.0 0.0 Neutrophils # 3.6 11.3 H Lymphocytes # 1.6 0.6 L Monocytes # 0.4 0.4 Eosinophils # 0.1 0.0 Basophils # 0.0 0.0 Nucleated Red Blood Cells # 0.0 0.0 Prothrombin Time 12.2 Prothrombin Time Ratio 1.0 INR International Normalized Ratio 0.91 Sodium Level 140 Potassium Level 4.4 Chloride Level 95 L Carbon Dioxide Level 32 H Anion Gap 17 H Blood Urea Nitrogen 27 H Creatinine 5.09 H Glucose Level 77 Calcium Level 9.8 Magnesium Level 2.0 Triglycerides Level 86 Cholesterol Level 88 L LDL Cholesterol, Calculated 20 HDL Cholesterol 51 Cholesterol/HDL Ratio 1.7 Thyroid Stimulating Hormone (TSH) Pending Test 01/17/17 06:21 Lab Scanned Report BLOOD TRANSFUSION Medications Medications Current Medications Acetaminophen (Tylenol Tab) 650 mg Q6H PRN PO PAIN LEVEL 1-3 OR FEVER Last administered on 01/17/17 06:07; Admin Dose 650 MG; Start 01/17/17 at 00:00 Pantoprazole (Protonix Iv) 40 mg DAILY@06 IV Last administered on 01/17/17 06 :00; Admin Dose 40 MG; Start 01/17/17 at 06:00 Diagnostic Test (Pha) (Accu-Chek) 1 ea 02 XX ; Start 01/18/17 at 02:00 Diagnostic Test (Pha) (Accu-Chek) 1 ea 02 XX ; Start 01/18/17 at 02:00 Ondansetron HCl (Zofran Inj) 4 mg Q4H PRN IV NAUSEA AND/OR VOMITING Last administered on 01/17/17 06:42; Admin Dose 4 MG; Start 01/17/17 at 06:30 STANISLAV CUNNINGHAM MD Jan 17, 2017 07:47
[2017-01-17] MEDS ORDERED: GLUCOSE GEL 15 GRAM TUBE PO PRN ×2 (08:00)
[2017-01-17] MEDS ORDERED: DEXTROSE 50% 50 ML SYRINGE IV PRN ×2 (08:00)
[2017-01-17] MEDS ORDERED: GLUCAGON 1 MG INJ IM PRN (08:00)
[2017-01-17] MEDS ORDERED: GLUCOSE GEL 15 GRAM TUBE BUCCAL PRN (08:00)
[2017-01-17] MEDS: INSULIN ASPART [NOVOLOG] 3 ML PEN SC SCH ×2 (08:25→13:26)
[2017-01-17] MEDS ORDERED: AMLODIPINE 5 MG TAB PO SCH (09:00)
[2017-01-17] MEDS ORDERED: SEVELAMER CARBONATE 0.8 GM PKT PO SCH (12:15)
--- NOTE | 2017-01-17 14:06 | PN ---
Date/Time of Note Date/Time of Note DATE: 01/17/17 TIME: 14:02 Assessment/Plan VTE Prophylaxis VTE Prophylaxis Intervention: other Lines/Catheters IV Catheter Type (from Nrsg): Peripheral IV Assessment/Plan Assessment/Plan 1 Intraoperative blood loss - Patient doing well after transfusions and H/H stable - Patient had approximately 700 cc of blood loss intraoperatively and received 2 units of packed red blood cells. - Vascular surgery and nephrology on board and recommendations appreciated 2. ESRD on HD - Patient is status post left AV fistula revision secondary to pseudoaneurysm formation. She also had a right IJ permacath placement 3. Hypertension - We will continue patient's home medications 4. diabetes mellitus - Continue home medications 5. Disposition - Clinically stable for discharge home - Medically cleared by Nephrology and Vascula surgery for d/c home Subjective 24 Hr Interval Summary Free Text/Dictation Patient doing well and no new complaints. No acute overnight events. Exam/Review of Systems Vital Signs Vitals Vital Signs Date Time Temp Pulse Resp B/P Pulse Ox O2 Delivery O2 Flow Rate FiO2 01/17/17 07:30 98.4 88 20 146/66 99 01/17/17 01:30 Room Air Intake and Output 01/16/17 01/16/17 01/17/17 15:00 23:00 07:00 Intake Total 350 ml 1175 ml Output Total 700 ml Balance 350 ml 475 ml Exam General: Patient in no acute distress. awake and alert HEENT: Atraumatic, normocephalic. The pupils are equal, round and reactive. Neck: Supple with full range of motion. No rigidity or meningismus Chest: Right IJ permacath in place Lungs: Clear to auscultation bilaterally no crackles rales or wheezing Heart: Normal S1-S2, Regular rhythm and rate. Abdomen: Soft , nontender, nondistended , bowel sounds are present. No guarding no rebound tenderness Extremities: Normal to inspection, no edema no cyanosis Neurologic: Normal mental status, speech normal, cranial nerves II through XII are intact, motor and sensory are intact, no focal weakness Skin: Left upper extremity dressing clean dry and intact status post left AV fistula revision. no thrill palpated Results Result Diagram: 01/17/17 0537 01/17/17 0537 Results 24 hrs Laboratory Tests Test 01/16/17 15:57 01/16/17 16:00 01/16/17 23:19 01/17/17 05:37 Bedside Glucose 79 252 H White Blood Count 5.8 # 12.4 #H Red Blood Count 3.84 #L 3.96 L Hemoglobin 11.6 L 11.9 L Hematocrit 36.0 L 36.4 L Mean Corpuscular Volume 93.8 91.9 Mean Corpuscular Hemoglobin 30.2 30.1 Mean Corpuscular Hemoglobin Concent 32.2 32.7 Red Cell Distribution Width 14.5 16.1 H Platelet Count 204 # 175 Mean Platelet Volume 11.7 H 11.7 H Neutrophils % 63.2 91.6 H Lymphocytes % 27.5 4.6 L Monocytes % 7.3 3.1 Eosinophils % 1.2 0.0 Basophils % 0.5 0.1 Nucleated Red Blood Cells % 0.0 0.0 Neutrophils # 3.6 11.3 H Lymphocytes # 1.6 0.6 L Monocytes # 0.4 0.4 Eosinophils # 0.1 0.0 Basophils # 0.0 0.0 Nucleated Red Blood Cells # 0.0 0.0 Prothrombin Time 12.2 Prothrombin Time Ratio 1.0 INR International Normalized Ratio 0.91 Sodium Level 140 139 Potassium Level 4.4 5.1 Chloride Level 95 L 100 Carbon Dioxide Level 32 H 24 Anion Gap 17 H 20 H Blood Urea Nitrogen 27 H 39 #H Creatinine 5.09 H 6.28 H Glucose Level 77 269 #H Calcium Level 9.8 9.8 Hemoglobin A1c 5.3 Magnesium Level 2.0 Triglycerides Level 86 Cholesterol Level 88 L LDL Cholesterol, Calculated 20 HDL Cholesterol 51 Cholesterol/HDL Ratio 1.7 Thyroid Stimulating Hormone (TSH) 0.926 Test 01/17/17 06:21 01/17/17 08:13 01/17/17 12:54 Lab Scanned Report BLOOD TRANSFUSION Bedside Glucose 243 H 205 Medications Medications Current Medications Acetaminophen (Tylenol Tab) 650 mg Q6H PRN PO PAIN LEVEL 1-3 OR FEVER Last administered on 01/17/17 06:07; Admin Dose 650 MG; Start 01/17/17 at 00:00 Pantoprazole (Protonix Iv) 40 mg DAILY@06 IV Last administered on 01/17/17 06 :00; Admin Dose 40 MG; Start 01/17/17 at 06:00 Diagnostic Test (Pha) (Accu-Chek) 1 ea 02 XX ; Start 01/18/17 at 02:00 Diagnostic Test (Pha) (Accu-Chek) 1 ea 02 XX ; Start 01/18/17 at 02:00 Ondansetron HCl (Zofran Inj) 4 mg Q4H PRN IV NAUSEA AND/OR VOMITING Last administered on 01/17/17 06:42; Admin Dose 4 MG; Start 01/17/17 at 06:30 Amlodipine Besylate (Norvasc) 5 mg DAILY PO Last administered on 01/17/17 08: 19; Admin Dose 5 MG; Start 01/17/17 at 09:00 Miscellaneous Information 1 ea NOTE XX ; Start 01/17/17 at 08:00 Glucose (Glutose) 15 gm Q15M PRN PO DECREASED GLUCOSE; Start 01/17/17 at 08:00 Glucose (Glutose) 22.5 gm Q15M PRN PO DECREASED GLUCOSE; Start 01/17/17 at 08: 00 Dextrose (D50w Syringe) 25 ml Q15M PRN IV DECREASED GLUCOSE; Start 01/17/17 at 08:00 Dextrose (D50w Syringe) 50 ml Q15M PRN IV DECREASED GLUCOSE; Start 01/17/17 at 08:00 Glucagon (Glucagen) 1 mg Q15M PRN IM DECREASED GLUCOSE; Start 01/17/17 at 08: 00 Glucose (Glutose) 15 gm Q15M PRN BUCCAL DECREASED GLUCOSE; Start 01/17/17 at 08:00 Atorvastatin Calcium (Lipitor) 10 mg DAILY@21 PO ; Start 01/17/17 at 21:00 CLARENCE KASPER MD Jan 17, 2017 14:06
--- NOTE | 2017-01-17 14:06 | DS ---
Date/Time of Note Date/Time of Note DATE: 01/17/17 TIME: 14:06 Discharge Summary Admission/Discharge Info Admit Date/Time Jan 17, 2017 at 00:51 Discharge Date/Time Discharge Diagnosis ESRD Hx of Present Illness Chief complaint: Intraoperative blood loss This is a 61-year-old female who is being admitted for intraoperative blood blood loss during her left AV fistula revision procedure. Patient was undergoing an outpatient surgery for left AV fistula revision. During the procedure she lost approximately 700 cc of blood. Patient was given packed red blood cells. Secondary to her blood loss requiring transfusion it was determined by the surgeon Dr. North and the tool specialist Dr. Mcdermott to have the patient admitted for observation overnight. Patient has a known history of end-stage renal disease and diabetes and hypertension and is currently receiving dialysis on a Monday schedule. Patient's exercise for dialysis developed hematoma approximately 2 months ago however she was able to undergo dialysis during this time. Upon further evaluation it was noted that the patient had developed a pseudoaneurysm. It was for this that the patient had a surgical revision of the left AV fistula today. Patient also had a right IJ permacath placement. Allergies: latex Medications: See MAR Hospital Course This is a 61-year-old female being admitted to the [facility] floor for: #1 Intraoperative blood loss: Patient had approximately 700 cc of blood loss intraoperatively. Patient currently right now is stable at the bedside. She does appear slightly somnolent however this likely could be secondary to patient 's anesthesia from the surgery. She is answering questions appropriately and is alert and oriented 3. There is no bleeding noted in any of the surgical sites or from the right IJ permacatheter placement. At the current time she is also receiving 2 units of packed red blood cells. Will continue the blood transfusion and monitor the patient. Repeat H&H after the transfusion and then 6 hours after that. Vascular surgery and nephrology are also on the case. #2 end-stage renal disease: Patient is status post left AV fistula revision secondary to pseudoaneurysm formation. She also had a right IJ permacath placement. Will defer further management to nephrology. #3 Hypertension: We will continue patient's home medications #4 diabetes mellitus: We will check hemoglobin A1c, insulin sliding scale hold home medications #5 DVT GI prophylaxis: SCDs, acid uche Further treatment strategy will be implemented as per the clinical course Home Meds Reported Medications [Tylenol ] No Conflict Check 05/31/16 Amlodipine Besylate* (Amlodipine Besylate*) 10 Mg Tablet, 5 MG PO DAILY, #30 TAB 05/31/16 Sevelamer Carbonate* (Renvela*) 800 Mg Tablet, 0.8 GM PO WITH MEALS, TAB 05/31/16 Sitagliptin* (Januvia*) 25 Mg Tablet, 25 MG PO DAILY, TAB 06/09/15 Glipizide* (Glipizide ER*) 2.5 Mg Tab.er.24, 2.5 MG PO BID 06/09/15 Simvastatin (Simvastatin) 10 Mg Tablet, 10 MG PO DAILY 06/09/15 Follow-up Plan FOLLOWUP FOR WOUND CHECK LIMA WEEK OR TWO DO NOT REMOVE DRESSING FOR 2 DAYS KEEP ARM SLING ON UNTIL MOTOR/SENSORY RETURNS (8-10HRS) AVOID BATHING OR SWIMMING, MAY SHOWER IN 2 DAYS Primary Care Provider Marciano Desai MD Pending Labs Laboratory Tests Test 01/16/17 15:57 01/16/17 16:00 01/16/17 23:19 01/17/17 05:37 Bedside Glucose 79mg/dL (70-220) 252mg/dL (70-220) White Blood Count 5.810^3/ul (4.8-10.8) 12.410^3/ul (4.8-10.8) Red Blood Count 3.8410^6/ul (4.20-5.40) 3.9610^6/ul (4.20-5.40) Hemoglobin 11.6g/dl (12.0-16.0) 11.9g/dl (12.0-16.0) Hematocrit 36.0% (37.0-47.0) 36.4% (37.0-47.0) Mean Corpuscular Volume 93.8fl (82.0-101.0) 91.9fl (82.0-101.0) Mean Corpuscular Hemoglobin 30.2pg (29.0-33.0) 30.1pg (29.0-33.0) Mean Corpuscular Hemoglobin Concent 32.2g/dl (32.0-37.0) 32.7g/dl (32.0-37.0) Red Cell Distribution Width 14.5% (11.5-14.5) 16.1% (11.5-14.5) Platelet Count 06317^3/UL (140-415) 63206^3/UL (140-415) Mean Platelet Volume 11.7fl (7.4-10.4) 11.7fl (7.4-10.4) Neutrophils % 63.2% (39.0-77.0) 91.6% (39.0-77.0) Lymphocytes % 27.5% (15.0-51.0) 4.6% (15.0-51.0) Monocytes % 7.3% (0.0-11.0) 3.1% (0.0-11.0) Eosinophils % 1.2% (0.0-7.0) 0.0% (0.0-7.0) Basophils % 0.5% (0.0-2.0) 0.1% (0.0-2.0) Nucleated Red Blood Cells % 0.0/100WBC (0.0-0.0) 0.0/100WBC (0.0-0.0) Neutrophils # 3.610^3/ul (1.6-7.5) 11.310^3/ul (1.6-7.5) Lymphocytes # 1.610^3/ul (0.8-2.9) 0.610^3/ul (0.8-2.9) Monocytes # 0.410^3/ul (0.3-0.9) 0.410^3/ul (0.3-0.9) Eosinophils # 0.110^3/ul (0.0-0.5) 0.010^3/ul (0.0-0.5) Basophils # 0.010^3/ul (0.0-0.1) 0.010^3/ul (0.0-0.1) Nucleated Red Blood Cells # 0.010^3/ul (0.0-0.0) 0.010^3/ul (0.0-0.0) Prothrombin Time 12.2Sec (12.2-14.2) Prothrombin Time Ratio 1.0 INR International Normalized Ratio 0.91 Sodium Level 140mmol/L (135-144) 139mmol/L (135-144) Potassium Level 4.4mmol/L (3.5-5.1) 5.1mmol/L (3.5-5.1) Chloride Level 95mmol/L (97-110) 100mmol/L (97-110) Carbon Dioxide Level 32mmol/L (21-31) 24mmol/L (21-31) Anion Gap 17 (8-16) 20 (8-16) Blood Urea Nitrogen 27mg/dl (7-20) 39mg/dl (7-20) Creatinine 5.09mg/dl (0.44-1.00) 6.28mg/dl (0.44-1.00) Glucose Level 77mg/dl (70-220) 269mg/dl (70-220) Calcium Level 9.8mg/dl (8.4-10.2) 9.8mg/dl (8.4-10.2) Hemoglobin A1c 5.3% (0-5.9) Magnesium Level 2.0mg/dl (1.7-2.5) Triglycerides Level 86mg/dl (0-149) Cholesterol Level 88mg/dl (100-200) LDL Cholesterol, Calculated 20mg/dl HDL Cholesterol 51mg/dl (35-98) Cholesterol/HDL Ratio 1.7RATIO Thyroid Stimulating Hormone (TSH) 0.926MIU/L (0.465-4.680) Test 01/17/17 06:21 01/17/17 08:13 01/17/17 12:54 Lab Scanned Report BLOOD [id number] Bedside Glucose 243mg/dL (70-220) 205mg/dL (70-220) CLARENCE KASPER MD Jan 17, 2017 14:06
--- NOTE | 2017-01-17 14:09 | PDOCDIS ---
Discharge Instructions DIAGNOSIS Discharge Diagnosis 1. Intraoperative blood loss 2. End-stage renal disease on HD 3. Hypertension 4. Diabetes mellitus CONDITION Patient Condition: Good HOME CARE INSTRUCTIONS: Special Diet: Carb count ACTIVITY: Activity Restrictions: Slowly Increase Activity Avoid heavy lifting Do not Drive Do not operate Machinery Do not operate Power Tool Avoid Heavy Housework Keep Limb Elevated Bathing Restrictions: Sponge Bath FOLLOW UP/APPOINTMENTS Follow-up Plan FOLLOWUP FOR WOUND CHECK LIMA WEEK OR TWO DO NOT REMOVE DRESSING FOR 2 DAYS KEEP ARM SLING ON UNTIL MOTOR/SENSORY RETURNS (8-10HRS) AVOID BATHING OR SWIMMING, MAY SHOWER IN 2 DAYS REFERRALS Other Referrals Chito Juarez MD Specialty: Vascular Surgery Office Address [address] [place] [address] Office SCHOOL/WORK RELEASE May return to School/Work on: Jan 19, 2017 CLARENCE KASPER MD Jan 17, 2017 14:09
--- NOTE | 2017-01-17 14:09 | PDOCDIS ---
Discharge Instructions DIAGNOSIS Discharge Diagnosis 1. Intraoperative blood loss 2. End-stage renal disease on HD 3. Hypertension 4. Diabetes mellitus CONDITION Patient Condition: Good HOME CARE INSTRUCTIONS: Special Diet: Carb count ACTIVITY: Activity Restrictions: Slowly Increase Activity Avoid heavy lifting Do not Drive Do not operate Machinery Do not operate Power Tool Avoid Heavy Housework Keep Limb Elevated Bathing Restrictions: Sponge Bath FOLLOW UP/APPOINTMENTS Follow-up Plan FOLLOWUP FOR WOUND CHECK LIMA WEEK OR TWO DO NOT REMOVE DRESSING FOR 2 DAYS KEEP ARM SLING ON UNTIL MOTOR/SENSORY RETURNS (8-10HRS) AVOID BATHING OR SWIMMING, MAY SHOWER IN 2 DAYS REFERRALS Other Referrals Chito Juarez MD Specialty: Vascular Surgery Office Address [address] [place] [address] Office SCHOOL/WORK RELEASE May return to School/Work on: Jan 19, 2017 CLARENCE KASPER MD Jan 17, 2017 14:09
--- NOTE | 2017-01-17 14:09 | PDOCDIS ---
Discharge Instructions DIAGNOSIS Discharge Diagnosis 1. Intraoperative blood loss 2. End-stage renal disease on HD 3. Hypertension 4. Diabetes mellitus CONDITION Patient Condition: Good HOME CARE INSTRUCTIONS: Special Diet: Carb count ACTIVITY: Activity Restrictions: Slowly Increase Activity Avoid heavy lifting Do not Drive Do not operate Machinery Do not operate Power Tool Avoid Heavy Housework Keep Limb Elevated Bathing Restrictions: Sponge Bath FOLLOW UP/APPOINTMENTS Follow-up Plan FOLLOWUP FOR WOUND CHECK [place] WEEK OR TWO DO NOT REMOVE DRESSING FOR 2 DAYS KEEP ARM SLING ON UNTIL MOTOR/SENSORY RETURNS (8-10HRS) AVOID BATHING OR SWIMMING, MAY SHOWER IN 2 DAYS REFERRALS Other Referrals Chito Juarez MD Specialty: Vascular Surgery Office Address [address] [place] [address] Office SCHOOL/WORK RELEASE May return to School/Work on: Jan 19, 2017 CLARENCE KASPER MD Jan 17, 2017 14:09
--- NOTE | 2017-01-17 14:24 | OPR ---
DATE OF OPERATION: 01/17/2017 SURGEON: Robin Juarez. PREOPERATIVE DIAGNOSIS: Left upper extremity malfunctioning AV fistula and pseudoaneurysm of the le ft upper extremity. POSTOPERATIVE DIAGNOSIS: Left upper extremity malfunctioning AV fistula and pseudoaneurysm of the l eft upper extremity. PROCEDURE: 1. Exploration of left brachial artery 2. Excision and evacuation of left upper extremity pseudoaneurysm and hematoma. 3. Revision of left upper extremity AV fistula using bovine Artegraft. 4. Right internal jugular permanent catheter placement with fluoroscopy. ANESTHESIA: Regional block and sedation. COMPLICATIONS: None. ESTIMATED BLOOD LOSS: 500 mL. TRANSFUSIONS: Two units of packed red blood cells. SPECIMEN: Pseudoaneurysm. INDICATIONS: This is a 61-year-old female with a history of end-stage renal disease who had underwe nt a brachiocephalic fistula creation in the past. Subsequent to that, the patient had been had bee n lost to followup and had returned for her vascular surveillance of her fistula which identified th e patient having neointimal hyperplasia and some high velocities. During the time of her workup for a fistulogram the patient had an injury to her fistula during her cannulations in her dialysis cent er in which she had developed a large pseudoaneurysm over the course of 2 months. Once she followed up with our office and evaluation of the pseudoaneurysm attempt of salvaging this fistula was discu ssed and patient was informed of the alternatives, risks and benefits of the procedure. Risks inclu ding but not limited to , [place], pneumonia, stroke, infection, thrombosis of graft and arterial th rombosis revision of AV fistula, steal syndrome, nerve injury and limb loss. The patient has electe d to undergo the procedure. DESCRIPTION OF PROCEDURE: The patient was brought into the operating room table, placed in supine p osition. Arms were placed at 80 degrees and the normal bony prominences were padded. Anesthesia te am had placed appropriate lines and moderate sedation and local anesthesia was given. Timeout was p erformed. Appropriate site was marked and confirmed. The patient's left upper extremity and right neck and right chest were prepped and draped in the usual standard sterile fashion. Preoperative an tibiotics were administered prior to skin incision. At this point, a tunneled dialysis catheter was flushed with heparinized saline to ensure function of each port. The skin and subcutaneous tissue was anesthetized with 1% lidocaine. Landmarks were identified and an infraclavicular stab incision was made on the anterior chest wall. Using ultrasound guidance, micropuncture needle was then used to access the central vein and the wire was placed under fluoroscopy. Using the catheter tunnel, th e permanent catheter was tunneled. Amplatz wire was then placed in the inferior vena cava with fluo roscopy and the tract was dilated sequentially with serial dilators. At this point, a peelaway lugo th was placed over the wire and the wire and the inner dilator was then removed. The permanent cath eter was then placed through the peelaway sheath successfully. Spot fluoroscopy was performed. The catheter position was satisfactory. The peelaway sheath was removed completely without any issues. Each port was aspirated to ensure adequate blood flow and then flushed with heparinized saline breezy ution. Each port then had heparin placed in it per recommended catheter dose. The catheter was the n secured using a 3-0 nylon suture and a sterile dressing was then applied. Patient tolerated the p rocedure well and then attention was turned to the left upper extremity. At this point, a 4 cm skin incision was then performed over the cephalic vein in the anterolateral aspect of the upper arm. T his incision was then deepened through the skin and subcutaneous tissue and the cephalic vein was id entified and the Silastic vessel loop was placed. Subsequently, we went ahead and made an incision over a previous antecubital incision where she had her brachiocephalic fistula created and dissectio n was carried through the skin and subcutaneous tissue until the cephalic vein was identified near the anastomosis. At this point, exploration of the brachial artery was performed to evaluate for an y pseudoaneurysms in this segment, which none was identified. Once we had adequate inflow and outfl ow control, we went ahead and heparinized the patient and a clamp was placed near the arterial anast omosis. A 5 cm skin incision was then performed in the medial aspect of the upper arm were the pseu doaneurysm was palpated and identified. The skin incision was then deepened through the skin and mendoza bcutaneous tissue and the aneurysmal sac was identified. The pseudoaneurysm sac was quite large and had developed a significant sac near the biceps muscle in which it had deformed the muscle more med ially where the pseudoaneurysm has developed on the lateral side of the upper arm. The pseudoaneury sm sac was followed as to prevent from any infiltration into it. Once that was performed, it was id entified where the cephalic vein had the multiple cannulation tears from needle puncture during her dialysis sessions. Once this was identified, aneurysm sac was from this segment and all o f the pseudoaneurysm and hematoma was evacuated and excised. This was then irrigated with antibioti c solution. After this was performed, attempt was made to salvage the cephalic vein in order to hav e a functioning fistula. Unfortunately, the vein was too damaged and salvage was impossible. Jeri alcantar this period of time, the patient did have some blood loss in which decision was made to go ahead a nd transfuse the patient intraoperatively. We then went ahead and performed a revision of her fistula using bovine Artegraft. We went ahead an d spatulated both ends of her graft and a proximal anastomosis was performed using the 5-0 Prolene s uture near the anastomosis. Once this was performed forward flushing, back bleeding and irrigation with heparinized saline was performed. Our clamp position was then changed to the distal end of the graft near the upper arm incision near where the cephalic vein was placed. At this point, we went ahead and placed our proximal and distal clamps on the cephalic vein and performed a venotomy. The venotomy was 1 cm and using a 6-0 Prolene the Artegraft was spatulated to fit the venotomy site and an anastomosis using a 6-0 running Prolene suture was performed. Upon the completion, forward flush ing, back bleeding and irrigation with heparinized saline was performed. All clamps were removed. The patient did have adequate flow across the AV graft. Once this was performed, multiple anticoagu lant supplements were placed in the area of the pseudoaneurysm where the patient did have a lot of c apillary bed bleeding and patient was given also desmopressin intraoperatively. Upon the completion of this, the patient was rechecked, which hemostasis was achieved and using a 3-0 Vicryl suture, we went ahead and closed the subcutaneous layer. A 3-0 Vicryl suture was then performed to close the dermal layer and skin corrine were applied across all 3 incisions. The patient tolerated procedure well and was taken to the postanesthesia care unit in stable condition. Dictated By: ROBIN HUTSON/STEPHEN Conf#: [id number] [facility]#: [id number]
--- NOTE | 2017-01-17 14:57 | RADRPT ---
Vent Rate: 72 bpm RR Interval: 0 msec NV Interval: 134 msec QRS Duration: 88 msec QT Interval: 398 msec QTC Interval: 435 msec P-R-T Banks: 20 - 26 - 75 degrees Normal sinus rhythm Normal ECG Electronically Signed By: Gary Urrutia [id number]
--- NOTE | 2017-01-17 14:57 | RADRPT ---
Vent Rate: 72 bpm RR Interval: 0 msec ID Interval: 134 msec QRS Duration: 88 msec QT Interval: 398 msec QTC Interval: 435 msec P-R-T Tatums: 20 - 26 - 75 degrees Normal sinus rhythm Normal ECG Electronically Signed By: Gary Urrutia [id number]
[2017-01-17] MEDS ORDERED: ATORVASTATIN 10 MG TAB PO SCH (21:00)
[2017-01-18] MEDS ORDERED: ACCU-CHEK XX SCH ×2 (02:00)
== END 2017-01-17 15:50 | disposition home or self-care (01) ==
LOC: SDS 15:36 → MS2 01-17 00:51
PROVIDERS: ADMIT Student in an Organized Health Care Education/Training Program; ATTEND Student in an Organized Health Care Education/Training Program
DX: T82.898A Other specified complication of vascular prosthetic devices, implants and grafts, initial encounter (principal); I72.8 Aneurysm of other specified arteries; E11.22 Type 2 diabetes mellitus with diabetic chronic kidney disease; I12.0 Hypertensive chronic kidney disease with stage 5 chronic kidney disease or end stage renal disease; N18.6 End stage renal disease; Z99.2 Dependence on renal dialysis; D64.9 Anemia, unspecified
CPT/HCPCS: 36430; 36558; 36833; 37607; 71010; 77001; 80048; 80061; 82962; 83036; 83735; 84443; 85025; 85610; 86850; 86900; 86901; 86920; 88304; 93005; 99217; C1768; C9113; C9250; G0378; J0690; J1644; J1815; J2250; J2370; J2405; J2597; J2795; J3010; P9016

== ENCOUNTER 2017-03-10 07:37 | Day surgery (SDC) | payer BC ==
[~2017-03-10] VITALS: Ht 151.1 cm; Wt 62.4 kg
[~2017-03-10 07:37] MED LIST changes: -CEFAZOLIN 2 GM/50 ML (PMX) 50 ML IVPB ONE
[2017-03-10] MEDS ORDERED: THROMBIN 5000 UNIT VIAL ONE (08:10)
[2017-03-10] MEDS ORDERED: LIDOCAINE 1% (MPF) 30 ML INJ ONE (08:10)
[2017-03-10] MEDS ORDERED: GELATIN SIZE 100 SPONGE ONE (08:10)
[2017-03-10] MEDS ORDERED: HEPARIN 1000 UNITS/ML 10 ML INJ ONE (08:10)
[2017-03-10] MEDS ORDERED: DEXTROSE 50% 50 ML SYRINGE IV ONE (08:30)
[2017-03-10 08:46] VITALS: Ht 151.1 cm; Wt 62.4 kg
[2017-03-10 08:47] VITALS: BP 168/77; PULSE 87; RESP 16
[2017-03-10] MEDS ORDERED: GLIP5TAB13 PO (09:42)
[2017-03-10] MEDS ORDERED: SITA50TA2 PO (09:42)
[2017-03-10] MEDS ORDERED: SEVE800T7 PO (09:43)
== END 2017-03-10 09:35 | disposition home or self-care (01) ==
LOC: SDS 07:37
PROVIDERS: ATTEND Student in an Organized Health Care Education/Training Program
DX: E11.22 Type 2 diabetes mellitus with diabetic chronic kidney disease (principal); I12.0 Hypertensive chronic kidney disease with stage 5 chronic kidney disease or end stage renal disease; N18.6 End stage renal disease; Z53.8 Procedure and treatment not carried out for other reasons
CPT/HCPCS: 82962; 84132; J1644

== ENCOUNTER 2017-04-04 05:59 | Day surgery (SDC) | END 2017-04-04 11:28 | disposition home or self-care (01) ==

== ENCOUNTER 2017-05-26 09:45 | Inpatient (IN) | END 2017-05-29 18:09 | disposition home or self-care (01) | DRG 308 ==

== ENCOUNTER 2017-06-09 21:44 | Emergency (ER) | END 2017-06-10 15:19 | disposition home or self-care (01) ==

== ENCOUNTER 2017-07-18 09:31 | Day surgery (SDC) | END 2017-07-18 14:50 | disposition home or self-care (01) ==

== ENCOUNTER 2017-08-14 17:26 | Emergency (ER) | END 2017-08-14 19:45 | disposition home or self-care (01) ==

== ENCOUNTER 2017-09-26 07:20 | Day surgery (SDC) | END 2017-09-26 10:35 | disposition home or self-care (01) ==